=== PATIENT | male | born 1975 | race Caucasian/White ===

== ENCOUNTER 2025-04-05 00:48 | Day surgery (SDC) | payer OTHER, SELFPAY ==
[2025-03-28 12:58] VITALS: BMI 32.5
--- OUTSIDE RECORDS SUMMARY | 2025-04-03 16:00 | XMS_ITS | Encounter Summary ---
Author Organization [facility] Address [address] [place] [address] Care Team Providers Care Enterprise Engineer Name Role Phone Sara Shetty APRN Primary Care Provider + Encounter Details Date Type Department Care Team (Latest Contact Info) Description 04/03/2025 4:00 PM CDT - 04/03/2025 11:59 PM T Hospital Encounter [facility] [address] [place] [address] Sara Shetty APRN [address] [place] [address] Arrived Discharge Disposition: Home or Self Care (Routine Discharge) Social History Tobacco Use Types Packs/Day Years Used Date Smoking Tobacco: Former Cigarettes Q uit: 2000 Smokeless Tobacco: Never Alcohol Use Standard Drinks/Week Comments Yes 0 (1 standard drink = 0.6 oz pur e alcohol) rare occasion AUDIT-C Answer Date Recorded Frequency of Alcohol Consumption Never 2019 Average Number of Drinks Not on file 019 Frequency of Binge Drinking Not on file 01/25 Sex and Gender Information Value Date Recorded Sex Assigned at Male 11/10/2024 12:37 PM CDT Legal Sex Male 5:53 PM SECURITY TESTER Gender Identity Male 06/10/2022 11:53 AM SECURITY TESTER Sexual Orientation Straight 06/10/2022 11 :53 AM SECURITY TESTER documented as of this encounter Medications at Time of Discharge cyclobenzaprine (FLEXERIL) 10 MG tablet 04/27/2022 ezetimibe (ZETIA) 10 MG tablet 04/15/2022 gemfibrozil (LOPID) 600 MG tablet 05/23/2022 glimepiride (AMARYL) 2 MG tablet 07/31/2022 lisinopril (PRINIVIL) 10 MG tablet 05/09/2022 metFORMIN (GLUCOPHAGE) 1000 MG tablet 06/09/2022 Semaglutide 7 MG Tab TAKE 1 TABLET BY MOUTH DAILY FOR 30 DAYS, THEN INCREASE TO 7 MG DAILY 08/27/2022 sodium chloride (OCEAN) 0.65 % Solution 1 spray by Each Nostril route as needed for Dryness. documented as of this encounter Plan of Treatment Not on file documented as of this encounter Procedures Procedure Name Priority Date/Time Associated Diagnosis Comments BASIC METABOLIC PANEL Routine 04/03/2025 4:15 PM CDT Essential hypertension documented in this encounter Results * (ABNORMAL) BASIC METABOLIC PANEL (04/03/2025 4:15 PM CDT) SODIUM S/P/B 136 136 - 145 MMOL/L 04/03/2025 4:28 PM CDT [facility] POTASSIUM S/P/B 4.8 3.5 - 5.1 MMOL/L 04/03/2025 4:28 PM CDT [facility] CHLORIDE S/P/B 100 98 - 107 MMOL/L 04/03/2025 4:28 PM CDT [facility] CO2 25.5 21.0 - 32.0 MMOL/L 04/03/2025 4:28 PM CDT [facility] GLUCOSE 266(H) 70 - 99 MG/DL 04/03/2025 4:28 PM CDT [facility] Comment: FASTING GLUCOSE 100 TO 125 MG/DL IS CONSISTENT WITH IMPAIRED FASTING GLUCOSE. FASTING GLUCOSE >125 MG/DL IS CONSISTENT WITH DIABETES. RANDOM GLUCOSE >200 MG/DL WITH HYPERGLYCEMIC SYMPTOMS IS CONSISTENT WITH DIABETES. PER ADA GUIDELINES BUN 24 6 - 24 MG/DL 04/03/2025 4:28 PM CDT [facility] CREATININE S/P/B 1.34(H) 0.70 - 1.30 MG/DL 04/03/2025 4:28 PM CDT [facility] CALCIUM S/P/B 10.4 8.4 - 10.5 MG/DL 04/03/2025 4:28 PM CDT [facility] ANION GAP 10.5 5.0 - 15.0 MMOL/L 04/03/2025 4:28 PM CDT [facility] OSMOLALITY (CALC) 295 MOSM/KG 025 4:28 PM CDT [facility] Comment:REFERENCE RANGE NOT ESTABLISHED GFR ESTIMATE 64(L) >89 ML/MIN/1. 73 M2 04/03/2025 4:28 PM CDT [facility] GFR NOTES GFR REFERENCE S: 04/03/2025 4:28 PM CDT [facility] Comment: THE ESTIMATED GFR IS CALCULATED USING THE 2020 CKD-EPI EQUATION. THE FOLLOWING CATEGORIES FOR GRADING RENAL FUNCTION ARE RECOMMENDED BY THE INTERNATIONAL SOCIETY OF NEPHROLOGY (KDIGO 2012 CLINICAL PRACTICE GUIDELINE). G1,NORMAL OR HIGH: >89 ml/min/1.73 m2 G2,MILDLY DECREASED: 60-89 ml/min/1.73 m2 G3A,MILDLY TO MODERATELY DECREASED: 45-59 ml/min/1.73 m2 G3B,MODERATELY TO SEVERELY DECREASED: 30-44 ml/min/1.73 m2 G4,SEVERELY DECREASED: 15-29 ml/min/1.73 m2 G5,KIDNEY FAILURE: <15 ml/min/1.73 m2 04/03/2025 4:15 PM CDT Sara Shetty APRN LABORATORY Final Re sult [facility] [address] [place] [address], documented in this encounter Visit Diagnoses Diagnosis Essential hypertension Essential hypertension, malignant documented in this encounter Care Teams Enterprise Engineer Relationship Specialty Start Date End Date Sara Shetty APRN [address] [place] [address] PCP - General Nurse Practitioner Family 04/03/25 documented as of this encounter
--- OUTSIDE RECORDS SUMMARY | 2025-04-05 00:50 | XMS_ITS | Encounter Summary ---
Author Organization [facility] Address [address] [place] [address] Care Team Providers Care Marina Manager Name Role Phone Gomez Winchester MD Primary Care Provider [phone] Aldo Pandey Primary Care Provider [phone] Sara Shetty APRN Primary Care Provider + Encounter Details Date Type Department Care Team (Late st Contact Info) Description 12/31/2018 Abstract [facility] CONVERSION [address] [place] [address] , Generic MD Mahad Social History Tobacco Use Types Packs/Day Years Used Date Smoking Tobacco: Never Assessed Sex and Gender Information Value Date Recorded Sex Assigned at Male 11/10/2024 12:37 PM CDT Legal Sex Male 5:53 PM FURNITURE UPHOLSTERY MECHANIC Gender Identity Male 06/10/2022 11:53 AM FURNITURE UPHOLSTERY MECHANIC Sexual Orientation Straight 06/10/2022 11 :53 AM FURNITURE UPHOLSTERY MECHANIC documented as of this encounter Plan of Treatment Not on file documented as of this encounter Visit Diagnoses Not on filedocumented in this encounter Care Teams Marina Manager Relationship Specialty Start Date End Date Gomez Winchester MD [address] [place] [address] PCP - General FAMILY PRACTICE 02/22/19 11/08/24 Aldo Pandey FNP [address] [phone] PCP - General Nurse Practitioner Family 11/09/2404/02 Sara Shetty APRN [address] [place] [phone] PCP - General Nurse Practitioner Family 04/03/25 documented as of this encounter
--- OUTSIDE RECORDS SUMMARY | 2025-04-05 00:50 | XMS_ITS | Clinical Summary ---
Author Organization [facility] Address [address] [place] [address] Care Team Providers Care Ethnic Origins Teacher Name Role Phone Sara Shetty APRN Primary Care Provider + Allergies No known active allergies Medications sodium chloride (OCEAN) 0.65 % Solution 1 spray by Each Nostril route as needed for Dryness. Active cyclobenzaprine (FLEXERIL) 10 MG tablet 04/27/2022 Active ezetimibe (ZETIA) 10 MG tablet 04/15/2022 Active gemfibrozil (LOPID) 600 MG tablet 05/23/2022 Active lisinopril (PRINIVIL) 10 MG tablet 05/09/2022 Active metFORMIN (GLUCOPHAGE) 1000 MG tablet 06/09/2022 Acti ve glimepiride (AMARYL) 2 MG tablet 07/31/2022 Active Semaglutide 7 MG Tab TAKE 1 TABLET BY MOUTH DAILY FOR 30 DAYS, THEN INCREASE TO 7 MG DAILY 08/27/2022 Active Active Problems Problem Noted Date Diagnosed Date Neck pain 09/09/2023 Bilateral shoulder pain 08/17/2023 Low back pain 08/17/2023 Encounters Date Type Department Care Team Description 04/03/2025 4:00 PM CDT - 04/03/2025 11:59 PM CDT Hospital Encounter [facility] [address] [place] [address] Sara Shetty, LASER SPECIALIST Arrived Discharge Disposition: Home or Self Care (Routine Discharge) 04/03/2025 Orders Only [facility] [address] [place] [address] Sara Shetty, RICK 04/03/2025 Travel from Last 3 Months Family History Medical History Relation Comments Diabetes Father Heart Disease Father Heart Disease Maternal Grandfather Asthma Maternal Grandmother COPD Maternal Grandmother Kidney Disease Mother Macular Degeneration Mother Relation Status Comments Father Maternal Grandfather Maternal Grandmother Mother Social History Tobacco Use Types Packs/Day Years Used Date Smoking Tobacco: Former Cigarettes Q uit: 1999 Smokeless Tobacco: Never Tobacco Cessation:Counseling Given: Not Answered Alcohol Use Standard Drinks/Week Comments Yes 0 [...] PM CDT Legal Sex Male 5:53 PM BUS STARTER Gender Identity Male 06/10/2022 11:53 AM BUS STARTER Sexual Orientation Straight 06/10/2022 11 :53 AM BUS STARTER Last Filed Vital Signs Vital Sign Reading Time Taken Comments Blood Pressure 150/93 09/17/2022 8:34 PM BUS STARTER Pulse 93 09/17/2022 8:34 PM BUS STARTER Temperature 35.7 C (96.3 F) 09/17/2022 8:34 PM BUS STARTER Respiratory Rate 16 09/17/2022 8:34 PM BUS STARTER Oxygen Saturation 99% 09/17/2022 8:34 PM BUS STARTER Inhaled Oxygen Concentration - - Weight 117.9 kg (260 lb) 09/17/2022 8:34 PM BUS STARTER Height 177.8 cm (5' 10) 09/17/2022 8:34 PM BUS STARTER Body Mass Index 37.31 09/17/2022 8:34 PM BUS STARTER Plan of Treatment Health Maintenance Due Date Last Done Comments Annual Physical 02/23/1976 Hepatitis C 1991 DTaP, Tdap and Td Vaccines ( 1 - Tdap) 02/23/1992 Hepatitis B Vaccines (1 of 3 - 19+ 3-dose series) 02/23/1992 Pneumococcal Vaccine: 50+ Years (1 of 1 - PCV) 2023 Zoster Vaccines (1 of 2) 2023 COVID-19 Vaccine (1 - 2023-2 5 season) 2025 Colorectal Cancer Screening Colonoscopy (10 Years) 09/11/2032 09/11/2022, 09/11/2022 Meningococcal B Vaccine Aged Out No l onger eligible based on patient's age to complete this topic Meningococcal Vaccine Aged Out No jewel alvino eligible based on patient's age to complete this topic RSV Immunizations Under 20 Months Aged Out No longer eligible b ased on patient's age to complete this topic Procedures Procedure Name Priority Date/Time Associated Diagnosis Comments BASIC METABOLIC PANEL Routine 04/03/2025 4:15 PM CDT Essential hypertension COLONOSCOPY 09/11/2022 6:52 AM BUS STARTER from Last 3 Months or Most Recently Relevant to Health Maintenance Results * (ABNORMAL) BASIC METABOLIC PANEL (04/03/2025 4:15 PM CDT) SODIUM S/P/B 136 136 - 145 MMOL/L 04/03/2025 4:28 PM CDT [facility] POTASSIUM S/P/B 4.8 3.5 - 5.1 MMOL/L 04/03/2025 4:28 PM CDT [facility] CHLORIDE S/P/B 100 98 - 107 MMOL/L 04/03/2025 4:28 PM CDT [facility] CO2 25.5 21.0 - 32.0 MMOL/L 04/03/2025 4:28 PM CDT [facility] GLUCOSE 266(H) 70 - 99 MG/DL 04/03/2025 4:28 PM CDT [facility] Comment: FASTING GLUCOSE 100 TO 125 MG/DL IS CONSISTENT WITH IMPAIRED FASTING GLUCOSE. FASTING GLUCOSE >125 MG/DL IS CONSISTENT WITH DIABETES. RANDOM GLUCOSE >200 MG/DL WITH HYPERGLYCEMIC SYMPTOMS IS CONSISTENT WITH DIABETES. PER ADA GUIDELINES BUN 24 6 - 24 MG/DL 04/03/2025 4:28 PM CDT [facility] CREATININE S/P/B 1.34(H) 0.70 - 1.30 MG/DL 04/03/2025 4:28 PM CDT [facility] CALCIUM S/P/B 10.4 8.4 - 10.5 MG/DL 04/03/2025 4:28 PM CDT [facility] ANION GAP 10.5 5.0 - 15.0 MMOL/L 04/03/2025 4:28 PM CDT [facility] OSMOLALITY (CALC) 295 MOSM/KG 025 4:28 PM CDT [facility] Comment:REFERENCE RANGE NOT ESTABLISHED GFR ESTIMATE 64(L) >89 ML/MIN/1. 73 M2 04/03/2025 4:28 PM CDT [facility] GFR NOTES GFR REFERENCE S: 04/03/2025 4:28 PM T [facility] Comment: THE ESTIMATED GFR IS [...] m2 04/03/2025 4:15 PM CDT Sara Shetty LASER SPECIALIST LABORATORY Final Re sult [facility] [address] [place] [address], * Colonoscopy (09/11/2022 6:52 AM BUS STARTER) Chauncey Villalba MD GI PROCEDURE ORDERABLES Final Result from Last 3 Months or Most Recently Relevant to Health Maintenance Insurance [employer] Care Teams Ethnic Origins Teacher Relationship Specialty Start Date End Date Sara Shetty APRN [address] [place] [address] PCP - General Nurse Practitioner Family 04/03/25
[2025-04-05 06:47] VITALS: BP 136/86; PULSE 82; RESP 16; TEMP 36.7; O2SAT 96; BMI 32.6
[2025-04-05] MEDS: LACTATED RINGERS 1,000 ML 150 ML IV CONT (07:04)
--- NOTE | 2025-04-05 07:20 | WPDANESEPPF ---
Anes - Initial Pre Proc Eval Procedure: Operation Date: 04/05/25 08:00 Proposed Procedures p EGD & Diagnostic Colonoscopy - Miguel Angel Rich MD Date/Time: 04/05/25 07:20 Surgeon: Miguel Angel Rich MD Pre Op Diagnosis: Anemia, unspecified Patient Data Age: 50 Gender: M Height: 1.83 m Weight: 109.3 kg Last Vital Signs Temp 36.7 C 04/05/25 06:47 Pulse 82 04/05/25 06:47 Resp 16 04/05/25 06:47 BP 136/86 04/05/25 06:47 Pulse Ox 96 04/05/25 06:47 O2 Del Method Room Air 04/05/25 06:47 Allergies Allergy/AdvReac Type Severity Reaction Status Date / Time No Known Allergies Allergy Verified 04/05/25 06:45 Home Medications ?Medication ?Instructions ?Recorded ?Confirmed ?Type cyclobenzaprine 10 mg tablet 10 mg PO TID PRN muscle spasm 11/27/24 04/05/25 History ezetimibe 10 mg tablet 10 mg PO DAILY 11/27/24 04/05/25 History gabapentin 300 mg capsule 300 mg PO TID 11/27/24 04/05/25 History glimepiride 2 mg tablet 2 mg PO QAM 11/27/24 04/05/25 History lisinopril 10 mg tablet 10 mg PO DAILY 11/27/24 04/05/25 History metformin 1,000 mg tablet 1,000 mg PO BID 11/27/24 04/05/25 History pantoprazole 40 mg tablet,delayed 40 mg PO QAM 11/27/24 04/05/25 History release psyllium husk 0.52 gram capsule 0.52 g PO DAILY 11/27/24 04/05/25 History cetirizine 10 mg tablet (Aller-Debi) 10 mg PO DAILY PRN allergy symptoms 03/28/25 04/05/25 History diclofenac sodium 50 mg 50 mg PO BID PRN pain 03/28/25 03/28/25 History tablet,delayed release gemfibrozil 600 mg tablet 600 mg PO BID 03/28/25 04/05/25 History Patient hx anesthesia problems: none Family hx anesthesia problems: none Results Review: All pre-operative results and documents have been reviewed as part of the pre-operative evaluation. PMFSH Past Medical History Medical History (Updated 04/04/25 @ 14:23 by Baldomero Cho DO) Diabetes type 2, controlled Social History Social History Smoking packs per day: 0.5 Smoking cigarettes per day: 10.0 Smoking status: Former smoker Alcohol intake: current Drinks per week: 1 Living arrangements: with family Spiritual care concerns: No Anes - Eval Final PreProcedure Day of Procedure 04/05/25 07:20 Patient weight: obese Heart: regular rate and rhythm Lungs: clear to auscultation Airway: Mallampati scale class II Neurological: alert and oriented Last oral intake: >/= 8 hours ASA classification: III Emergent: no Anesthetic plan: proceed Anesthesia type and monitoring: general GIVS and standard monitoring Results Review: All pre-operative results and documents have been reviewed as part of the pre-operative evaluation. Informed Consent: The patient's anesthetic plan and its attendant risks and benefits were discussed with the patient/family/POA. Questions were solicited and answers provided to the satisfaction of the patient/family/POA.
--- NOTE | 2025-04-05 08:00 | PM.HPGS ---
History of Present Illness History of Present Illness Consent: Risks, benefits, and alternatives have been discussed and questions answered. Patient agrees to proceed with procedure. Chief complaint: Anemia, unspecified Narrative: Cyrus Blackmon is a 50 year old male with anemia and blood in stools, had colonoscopy 2022 with diverticulosis Review of Systems Review of Systems: All systems reviewed & are unremarkable except as noted in HPI and below PMFSH Past Medical History Medical History (Updated 04/04/25 @ 14:23 by Baldomero Cho DO) Diabetes type 2, controlled Social History Social History Smoking packs per day: 0.5 Smoking cigarettes per day: 10.0 Smoking status: Former smoker Alcohol intake: current Drinks per week: 1 Living arrangements: with family Spiritual care concerns: No Meds Home Medications and Allergies Home Medications ?Medication ?Instructions ?Recorded ?Confirmed ?Type cyclobenzaprine 10 mg tablet 10 mg PO TID PRN muscle spasm 11/27/24 04/05/25 History ezetimibe 10 mg tablet 10 mg PO DAILY 11/27/24 04/05/25 History gabapentin 300 mg capsule 300 mg PO TID 11/27/24 04/05/25 History glimepiride 2 mg tablet 2 mg PO QAM 11/27/24 04/05/25 History lisinopril 10 mg tablet 10 mg PO DAILY 11/27/24 04/05/25 History metformin 1,000 mg tablet 1,000 mg PO BID 11/27/24 04/05/25 History pantoprazole 40 mg tablet,delayed 40 mg PO QAM 11/27/24 04/05/25 History release psyllium husk 0.52 gram capsule 0.52 g PO DAILY 11/27/24 04/05/25 History cetirizine 10 mg tablet (Aller-Debi) 10 mg PO DAILY PRN allergy symptoms 03/28/25 04/05/25 History diclofenac sodium 50 mg 50 mg PO BID PRN pain 03/28/25 03/28/25 History tablet,delayed release gemfibrozil 600 mg tablet 600 mg PO BID 03/28/25 04/05/25 History Allergies Allergy/AdvReac Type Severity Reaction Status Date / Time No Known Allergies Allergy Verified 04/05/25 06:45 Vital Signs Vital Signs - 24 hr 04/05/25 06:47 Temperature 98.1 F Pulse Rate 82 Respiratory Rate 16 Blood Pressure 136/86 Pulse Oximetry 96 Oxygen Delivery Room Air Exam Const: General: comfortable and no acute distress HENMT: Face/Nose/Sinus: Normal nares present Eyes: General: appearance normal, both eyes and all related structures Neck: Neck: no JVD Resp: Auscultation: clear to auscultation bilaterally Cardio: Rate: regular rate Rhythm: regular rhythm GI: Inspection: non-distended GI Palp: Yes Soft to palpation Skin: General skin exam: normal color Neuro: Speech: normal speech Extrem: General: normal to inspection Psych: Mental Status: mental status grossly normal Assessment and Plan Assessment and plan (1) Heme positive stool: Code(s): R19.5 - Other fecal abnormalities Status: Acute Assessment and Plan: colonoscopy (2) Anemia: Qualifiers: Anemia type: iron deficiency Iron deficiency anemia type: unspecified iron deficiency Qualified Code(s): D50.9 - Iron deficiency anemia, unspecified Code(s): D64.9 - Anemia, unspecified Status: Acute Assessment and Plan: egd
--- NOTE | 2025-04-05 08:14 | S_PTH ---
PATIENT: Cyrus Blackmon LOC: [facility] Angelo#:[id number] AGE/SX: 50/M ROOM: RE04/05/[address]: Miguel Angel Rich MD : 1975 BED: DIS: 04/05/2025 SPEC #: [id number] RECD: 04/05/25 10:28 STATUS: DANIELE REShannan #: [id number] BRAULIO: 04/05/25 08:[address]: Miguel Angel Rich DEPT: [facility] [place] Surgical RECD BY: Alexandra Marquez ENTERED: 04/05/25 10:29 SP TYPE: Surgical OTHR DR: Gomez Winchester, MAmado Tissues: A - Small Bowel Bx B - Gastric Biopsy Procedures: Hematoxylin and Eosin Stain Gross and Microscopic Level 4
--- NOTE | 2025-04-05 08:15 | SUR.OPER ---
EGD [id number], COLONOSCOPY [id number]
[2025-04-05 08:21] VITALS: BP 117/72; PULSE 86; RESP 27; O2SAT 95
[2025-04-05 08:31] VITALS: BP 107/69; PULSE 80; RESP 22; O2SAT 98
[2025-04-05 08:41] VITALS: BP 113/69; PULSE 81; RESP 20; O2SAT 94
== END 2025-04-05 08:52 | disposition home or self-care (01) ==
PROVIDERS: PCP Family Medicine; Visit Provider Internal Medicine Gastroenterology
PROC: 0DJ08ZZ Inspection of Upper Intestinal Tract, Via Natural or Artificial Opening Endoscopic (ICD-10-PCS; CPT 45378; principal; 2025-04-05 08:00)
DX: K64.8 Other hemorrhoids (principal); K31.89 Other diseases of stomach and duodenum; D64.9 Anemia, unspecified; E11.9 Type 2 diabetes mellitus without complications; E66.9 Obesity, unspecified; Z68.32 Body mass index [BMI] 32.0-32.9, adult; Z79.84 Long term (current) use of oral hypoglycemic drugs; Z87.19 Personal history of other diseases of the digestive system; Z87.891 Personal history of nicotine dependence
CPT/HCPCS: 43239; 45378; 82948; 88305; J2003; J2704; J7120

== ENCOUNTER 2025-04-27 05:15 | Outpatient (CLI) | payer OTHER, SELFPAY ==
--- NOTE | 2025-04-18 15:48 | SUR.PREOP ---
Spoke with patient in regards to givens capsule endoscopy. Instructions will be emailed to patient. Patient does not have questions at this time.
--- OUTSIDE RECORDS SUMMARY | 2025-04-27 05:19 | XMS_ITS | Encounter Summary ---
Author Organization [facility] Address [address] [place] [address] Care Team Providers Care Disability Liaison Officer Name Role Phone Gomez Winchester MD Primary Care Provider Aldo Pandey Primary Care Provider [phone] Sara Shetty APRN Primary Care Provider + Encounter Details Date Type Department Care Team (Late st Contact Info) Description 12/31/2018 Abstract SFL CONVERSION [address] [place] [address] , Generic MD Mahad Social History Tobacco Use Types Packs/Day Years Used Date Smoking Tobacco: Never Assessed Sex and Gender Information Value Date Recorded Sex Assigned at Male 11/10/2024 12:37 PM CDT Legal Sex Male 5:53 PM HEALTH CARE LIAISON Gender Identity Male 06/10/2022 11:53 AM HEALTH CARE LIAISON Sexual Orientation Straight 06/10/2022 11 :53 AM HEALTH CARE LIAISON documented as of this encounter Plan of Treatment Not on file documented as of this encounter Visit Diagnoses Not on filedocumented in this encounter Care Teams Disability Liaison Officer Relationship Specialty Start Date End Date Gomez Winchester MD [address] [place] [address] PCP - General FAMILY PRACTICE 02/22/19 11/08/24 Aldo Pandey FNP [address] [phone] PCP - General Nurse Practitioner Family 11/09/2404/02 Sara Shetty APRN [address] [place] [phone] PCP - General Nurse Practitioner Family 04/03/25 documented as of this encounter
--- NOTE | 2025-04-27 06:38 | SUR.OPER ---
Patient brought to GI Lab. Instructions for patient undergoing Capsule Endoscopy reviewed with patient. Consent form signed. Sensor array applied to patient's abdomen and connected to recorded. Patient swallowed capsule with 16 ozs of water infused with Simethicone. Patient instructed they may have clear liquids at 0830 this AM and eat or drink at 1030 this AM. Patient instructed to return to GI Lab at 1500 this afternoon for removal of recording device and to call [phone] or to return to the hospital if any nausea and vomiting or abdominal pain is experienced.
--- NOTE | 2025-04-27 15:19 | SUR.OPER ---
Patient returned to the GI Lab at 1515 for recorder box removal. Patient voiced no complaints. States they have understanding of instructions. Patient left ambulatory.
== END 2025-04-27 05:16 | disposition home or self-care (01) ==
PROVIDERS: Referring Provider Internal Medicine Gastroenterology; Visit Provider Internal Medicine Gastroenterology
PROC: (CPT 91110; principal; 2025-04-27 07:00)
DX: D50.9 Iron deficiency anemia, unspecified (principal)
CPT/HCPCS: 91110